=== PATIENT | female | born 1980 | race American Indian/Alaskan Native ===

== ENCOUNTER 2018-05-31 09:16 | Outpatient (CLI) | payer OTHER | END 2018-05-31 09:17 | disposition home or self-care (01) | LOC: C.PAT 09:16 | DX: D25.9 Leiomyoma of uterus, unspecified (principal) ==

== ENCOUNTER 2018-06-06 06:25 | Day surgery (SDC) | payer OTHER ==
[2018-05-31 09:25] VITALS: BMI 23.6
[2018-06-06] MEDS ORDERED: ceFAZolin 1 gm in NS 0 GM/0 ML BAG IVPB ONE (07:28)
[2018-06-06] MEDS ORDERED: Midazolam 2 MG/2 ML VIAL ONE (07:32)
[2018-06-06] MEDS ORDERED: Propofol 10 mg/ml Inj (20 ML) ONE (07:32)
[2018-06-06] MEDS ORDERED: cefOXitin IV 2 gm in Dextrose 2 GM/50 ML BAG IVPB ONE (07:45)
[2018-06-06] MEDS ORDERED: HYDROmorphone 0.5 mg/0.5 ml ISec IVP PRN (08:18)
[2018-06-06 09:33] VITALS: O2SAT 100
[2018-06-06 10:25] VITALS: BP 118/57; PULSE 77; RESP 15; TEMP 97.6
--- NOTE | 2018-06-06 13:10 | OP ---
PROCEDURE DATE: 06/06/2018 PREOPERATIVE DIAGNOSES: Fibroid uterus, menorrhagia. POSTOPERATIVE DIAGNOSES: Fibroid uterus, menorrhagia. PROCEDURES: Hysteroscopy, hysteroscopic myomectomy, dilation and curettage of the uterus. SURGEON: Rocco Matos MD TYPE OF ANESTHESIA: General. FINDINGS: A 0.5 cm posterior submucosal myoma. The remainder of the endometrial cavity is normal with normal tubal ostia and normal endocervical canal. ESTIMATED BLOOD LOSS: Less than 1 mL. COMPLICATIONS: Nil. INDICATION FOR PROCEDURE: After the risks, benefits, and alternatives of the planned procedures including but not limited to infection, hemorrhage, deep vein thrombosis, atelectasis, pneumonia, pulmonary embolism, damage to bladder, damage to the ureter, renal insufficiency, renal failure, wound infection, wound dehiscence, incisional hernia, keloid formation, damage to large and small intestines, damage to inferior vena cava and aorta requiring extensive repair, anesthesia complications, electrolyte imbalance, possibility of , fluid overload, cerebral edema, embolism, and other complications that were discussed but are not listed above had been explained to the patient and all her questions answered, informed consent was obtained. DESCRIPTION OF PROCEDURE: The patient was taken to the operating room in a stable condition. Under a suitable level of general anesthesia, she was prepped and draped in a sterile fashion. After having been placed in a dorsal lithotomy position, bladder was emptied by straight catheterization. Examination under anesthesia revealed a normal-size uterus, anteverted with no adnexal masses. A weighted speculum was inserted into the vagina. The anterior lip of the cervix was grasped using a single-tooth tenaculum. Endocervical curettage was performed and scant tissue was obtained. The uterus was sounded to 7 cm. The cervix was dilated to a #16 Hanks dilator. A hysteroscope was inserted into the uterus and using normal saline as extension medium, 1 cm posterior submucosal myoma was resected up to the level of the endometrium. The remainder of the endometrial cavity was normal. The hysteroscope was then removed and endometrial curettage was performed. Scant tissue was obtained. Instruments were removed from the vagina. Bleeding points on the tenaculum sites were ligated on both the right and left side using 2-0 chromic suture with good hemostasis. Instruments were then removed from the vagina. The patient was transferred to the recovery room in a stable condition. Pad and instrument counts were correct x2. There were no complications. Rocco Matos MD
== END 2018-06-06 10:06 | disposition home or self-care (01) ==
LOC: C.SDS 06:25
PROVIDERS: ATTEND Obstetrics & Gynecology Reproductive Endocrinology
DX: D25.9 Leiomyoma of uterus, unspecified (principal); N84.0 Polyp of corpus uteri; N92.0 Excessive and frequent menstruation with regular cycle
CPT/HCPCS: 36415; 58561; 58563; 84702; 88305; C2615; J0694; J1170; J2250; J2405; J2704; J3010